=== PATIENT | female | born 1950 | race Caucasian/White ===

== ENCOUNTER 2017-06-06 15:05 | Emergency (ER) | END 2017-06-06 19:22 | disposition home or self-care (01) ==

== ENCOUNTER 2017-06-24 12:16 | Inpatient (IN) | END 2017-06-24 18:19 | disposition home or self-care (01) | DRG 194 ==

== ENCOUNTER 2017-10-01 13:53 | Day surgery (SDC) | END 2017-10-01 16:54 | disposition home or self-care (01) ==